=== PATIENT | female | born 1980 ===

== ENCOUNTER 2018-10-17 19:49 | Emergency (ER) | payer OTHER ==
[2018-10-17 20:18] VITALS: BP 147/83
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
--- NOTE | 2018-10-17 21:23 | XRay Report ---
PROCEDURE: XR SPINE CERVICAL 2-3V HISTORY: neck pain FINDINGS: AP lateral and open-mouth views of the cervical spine were acquired and demonstrate no fracture or ma lalignment of the cervical spine. The prevertebral soft tissues are within normal limits. The interve rtebral disc space heights appear preserved. IMPRESSION: No fracture is seen in the cervical spine This document is electronically signed by Bentley Allen MD., October 17 2018 09:21:06 PM ET
--- NOTE | 2018-10-17 22:43 | XRay Report ---
PROCEDURE: XR SPINE LUMBOSACRAL 2-3V TECHNIQUE: Lumbar spine 2 views HISTORY: low back pain COMPARISONS: FINDINGS: Vertebral bodies are normal in height and alignment. Disc spaces are within normal limits. Posterior elements are intact. No evidence for spondylolisthesis. The SI joints are unremarkable. IMPRESSION: Normal lumbar spine series. This document is electronically signed by Kris Giordano MD., October 17 2018 10:41:05 PM ET
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
== END 2018-10-18 01:45 | disposition home or self-care (01) ==
LOC: ED 19:49
DX: S16.1XXA Strain of muscle, fascia and tendon at neck level, initial encounter (principal); S39.012A Strain of muscle, fascia and tendon of lower back, initial encounter; I48.91 Unspecified atrial fibrillation; Z90.710 Acquired absence of both cervix and uterus; V87.7XXA Person injured in collision between other specified motor vehicles (traffic), initial encounter; Y93.89 Activity, other specified; Y92.488 Other paved roadways as the place of occurrence of the external cause; Y99.8 Other external cause status
CPT/HCPCS: 72040; 72100; 99283